=== PATIENT | male | born 1985 | race Two or more races ===

== ENCOUNTER 2018-08-07 13:56 | Emergency (ER) | payer SELFPAY ==
[~2018-08-07] VITALS: Ht 182.9 cm; Wt 54.0 kg
[2018-08-07] MEDS ORDERED: OXYcodone/APAP 5/325MG TABLET ONE (14:35)
[2018-08-07] MEDS ORDERED: OXYcodone/APAP 5/325MG TABLET PO ONE (15:00)
[2018-08-07 15:51] VITALS: BP 116/74
== END 2018-08-07 16:49 ==
LOC: ED 16:43
DX: S16.1XXA Strain of muscle, fascia and tendon at neck level, initial encounter (principal); S00.93XA Contusion of unspecified part of head, initial encounter; M54.9 Dorsalgia, unspecified; V49.09XA Driver injured in collision with other motor vehicles in nontraffic accident, initial encounter; Y93.89 Activity, other specified; Y92.89 Other specified places as the place of occurrence of the external cause; Y99.8 Other external cause status
CPT/HCPCS: 70450; 72072; 72110; 72125; 99284